=== PATIENT | male | born 1965 | race American Indian/Alaskan Native ===

== ENCOUNTER 2017-10-18 13:21 | Emergency (ER) | payer OTHER, MEDICARE ==
[2017-10-18] MEDS ORDERED: MOTRIN ONE (15:00)
[2017-10-18] MEDS ORDERED: TYLENOL #3 ONE (15:01)
[2017-10-18] MEDS ORDERED: MOTRIN PO ONE (15:05)
[2017-10-18] MEDS ORDERED: TYLENOL #3 PO ONE (15:05)
[2017-10-18] MEDS ORDERED: NORCO 5/325 PO ONE (17:13)
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
[2017-10-18] MEDS ORDERED: BOOSTRIX IM ONE (19:07)
[2017-10-18 19:54] VITALS: BP 155/96
== END 2017-10-18 19:53 | disposition home or self-care (01) ==
LOC: ED 13:21
DX: S42.401A Unspecified fracture of lower end of right humerus, initial encounter for closed fracture (principal); M79.1 Myalgia; Z88.2 Allergy status to sulfonamides; V49.59XA Passenger injured in collision with other motor vehicles in traffic accident, initial encounter; Y93.89 Activity, other specified; Y99.8 Other external cause status; Y92.488 Other paved roadways as the place of occurrence of the external cause
CPT/HCPCS: 70450; 72125; 90471; 90715